=== PATIENT | male | born 1955 | race Caucasian/White ===

== ENCOUNTER 2017-09-28 10:02 | Day surgery (SDC) | payer OTHER ==
[2017-09-27 11:43] VITALS: BMI 30.4
[2017-09-28] MEDS ORDERED: Fentanyl 100 MCG/2 ML VIAL ONE ×2 (10:58→11:28)
[2017-09-28] MEDS ORDERED: Midazolam HCl 2 mg/2 ml Vial ONE ×2 (10:58→11:28)
--- NOTE | 2017-09-28 11:38 | RAD ---
LUMBAR SPINE RADIOGRAPH SERIES 5 VIEWS: COMPARISON: 05/27/13. CLINICAL HISTORY: Low back pain. FINDINGS: Frontal and lateral views including extension and flexion positioning performed. There is a mild ant erior wedge compression fracture of L1, stable. No interval, significant malalignment. No discernib le translational motion of significance identified with flexion and extension positioning. Multileve l degenerative change is grossly stable. IMPRESSION: 1. Stable chronic anterior L1 wedge compression fracture. 2. No significant malalignment or obvious translational motion of lumbar spine. POS: OLEG
--- NOTE | 2017-09-28 12:51 | MRI ---
MRI LUMBAR SPINE: History: Bilateral leg and back pain. Technique: Multiplanar, multisequence noncontrast enhanced MRI images were obtained of the lumbar spi ne. FINDINGS: T12-L1: Unremarkable. L1: There is old, approximately 25% superior endplate L1 compression fracture with no evidence of a e tigist. This appears to have healed. L1-2: Unremarkable. No significant degree of central or neural foraminal narrowing is seen. L2-3: There is mild facet hypertrophy. No significant degree of central or neural foraminal narrowing is seen. L3-4: There is bilateral facet and ligamentum flavum hypertrophy with fluid seen in the L3-4 facet merle ints. The central canal and neural foramen are patent. L4-5: Disc desiccation is seen. There is disc space height loss seen. There is a broad based disc bul ge. Mild to moderate central and lateral recess stenosis is seen. There is mild left sided neural for aminal narrowing seen. The right neural foramen is patent. L5-S1: Unremarkable. The sacrum contains some areas of fatty marrow changes seen in the S2 and S3 vertebral levels. IMPRESSION: L4-5 disc desiccation and disc space height loss and broad based disc bulge. POS: NARINDER
== END 2017-09-28 12:50 | disposition home or self-care (01) ==
LOC: SDC/OP 10:02
PROVIDERS: ATTEND Nurse Practitioner Family
DX: M54.16 Radiculopathy, lumbar region (principal); M48.56XA Collapsed vertebra, not elsewhere classified, lumbar region, initial encounter for fracture; I10 Essential (primary) hypertension; E78.5 Hyperlipidemia, unspecified; E80.4 Gilbert syndrome; E03.9 Hypothyroidism, unspecified; F32.9 Major depressive disorder, single episode, unspecified; F41.9 Anxiety disorder, unspecified; F40.240 Claustrophobia; E66.9 Obesity, unspecified; Z68.30 Body mass index [BMI] 30.0-30.9, adult; Z79.899 Other long term (current) drug therapy; Z88.5 Allergy status to narcotic agent; Z91.041 Radiographic dye allergy status
CPT/HCPCS: 72100; 72148; J2250; J3010

== ENCOUNTER 2018-11-26 12:09 | Outpatient (CLI) | payer OTHER ==
--- NOTE | 2018-11-26 12:40 | RAD ---
TWO VIEWS LEFT FEMUR: DATE: 11/26/2018. PROVIDED CLINICAL HISTORY: Bilateral leg pain without known injury. FINDINGS: There is no evidence for a fracture. No lytic or blastic lesions are seen. Joint spaces appear pres erved. The soft tissues appear radiographically unremarkable. IMPRESSION: Unremarkable left femoral radiographs. POS: OFF
--- NOTE | 2018-11-26 12:43 | RAD ---
TWO VIEWS LEFT FORELEG: DATE: 11/26/2018. PROVIDED CLINICAL HISTORY: Bilateral leg pain. FINDINGS: No evidence for fracture or other acute osseous abnormality. Alignment appears anatomic. Joint spac es appear grossly preserved. The proximal aspects of the tibia and fibula are not visualized on the lateral view, limiting evaluation. IMPRESSION: Unremarkable left foreleg radiographs with limitations as above. POS: OFF
--- NOTE | 2018-11-26 12:44 | RAD ---
RIGHT FORELEG RADIOGRAPHS 2 VIEWS: DATE: 11/26/2018. PROVIDED CLINICAL HISTORY: Leg pain. FINDINGS: No evidence for fracture or other acute osseous abnormality. Alignment appears anatomic. Joint spac es appear preserved. IMPRESSION: Unremarkable right foreleg radiographs. POS: OFF
== END 2018-11-26 12:10 | disposition home or self-care (01) ==
LOC: BICRAD 12:09
PROVIDERS: ATTEND Family Medicine
DX: M79.604 Pain in right leg (principal); M79.605 Pain in left leg

== ENCOUNTER 2019-02-05 07:44 | Outpatient (CLI) | payer OTHER ==
--- NOTE | 2019-02-05 08:46 | BD ---
DEXA BONE DENSITOMETRY: (Dual energy x-ray absorptiometry) DATE: 02/05/2019 HISTORY: 63-year old white male with rheumatoid arthritis and hyperparathyroidism and history of prior nontrau matic fracture weight: 190 lbs height: 67 in. COMPARISON: None available. FINDINGS: The bone mineral density (BMD) is given in grams per square centimeter (g/cm2): LUMBAR SPINE: BMD (g/cm^2) T score Z score L1: 0.556 -4.7 -4.1 L2: 0.714 -3.5 -2.7 L3: 0.801 -2.7 -2.0 L4: 0.799 -2.6 -1.9 Total: 0.722 -3.4 -2.6 HIP: BMD (g/cm^2) T score Z score Femoral neck: 0.644 -2.4 -1.1 Total: 0.926 -0.7 -0.2 IMPRESSION: 1.) The mean bone mineral density of the lumbar spine is osteoporotic. Fracture risk is high. 2) The bone mineral density of the femoral neck is osteopenic. Fracture risk is increased.
== END 2019-02-05 07:45 | disposition home or self-care (01) ==
LOC: BICMAMMO 07:44
DX: Z13.820 Encounter for screening for osteoporosis (principal); M81.0 Age-related osteoporosis without current pathological fracture; M85.859 Other specified disorders of bone density and structure, unspecified thigh
CPT/HCPCS: 77080

== ENCOUNTER 2019-03-15 13:29 | Emergency (ER) | payer OTHER ==
[2019-03-15] MEDS ORDERED: Proparacaine 0.5% Opth 15 ML BOT ONE (13:55)
[2019-03-15] MEDS ORDERED: Fluorescein Opthalmic Strip ONE ×2 (13:55→14:02)
== END 2019-03-15 14:36 | disposition home or self-care (01) ==
LOC: ERS 13:29
DX: S05.02XA Injury of conjunctiva and corneal abrasion without foreign body, left eye, initial encounter (principal); E03.9 Hypothyroidism, unspecified; I10 Essential (primary) hypertension; Z79.891 Long term (current) use of opiate analgesic; Z79.899 Other long term (current) drug therapy; X58.XXXA Exposure to other specified factors, initial encounter
CPT/HCPCS: 99282

== ENCOUNTER 2020-10-20 09:00 | Outpatient (CLI) | payer MEDICARE | END 2020-10-20 09:01 | disposition home or self-care (01) | LOC: BICMAMMO 09:00 | PROVIDERS: ATTEND Internal Medicine | DX: M81.0 Age-related osteoporosis without current pathological fracture (principal) | CPT/HCPCS: 77080 ==

== ENCOUNTER 2022-03-21 12:02 | Outpatient (CLI) | payer MEDICARE, OTHER | END 2022-03-21 12:03 | disposition home or self-care (01) | LOC: BICRAD 12:02 | PROVIDERS: ATTEND Family Medicine | DX: R05.2 Subacute cough (principal) | CPT/HCPCS: 71045 ==

== ENCOUNTER 2023-02-18 10:41 | Inpatient (IN) | payer MEDICARE, OTHER ==
[2023-02-18 11:17] LABS: #Eosinphils 0.1 thou/uL (0.0-0.7); #Monocytes 0.4 thou/uL (0.11-0.59); #Neutrophils 2.6 thou/uL (1.40-6.50); %Basophils 0.6 % (0.0-1.0); %Eosinophils 2.8 % (0.0-10.0); %Lymphocytes 31.3 % (21.0-51.0); %Monocytes 8.4 % (0.0-10.0); %Neutrophils 55.6 % (42.0-75.0); Hematocrit 40.2 % (42.0-52.0); Hemoglobin 14.2 g/dL (14.0-18.0); Mean Corpuscular HGB CONC 35.3 g/dL (32.0-36.0); Mean Corpuscular Hemoglobin 32.5 pg (27.0-31.0); Mean Platelet Volume 9.1 fL (7.4-10.4); Platelet Count 170 10x3/uL (130-400); RBC Distribution Width 11.9 % (11.5-14.5); Red Blood Cell (RBC) Count 4.37 mill/uL (4.70-6.10); White Blood Cell (WBC) Count 4.7 10x3/uL (4.8-10.8)
[2023-02-18 11:38] LABS: ALT (SGPT) 69 U/L (8-55); AST (SGOT) 22 U/L (5-34); Albumin 4.4 g/dL (3.4-4.8); Alkaline Phosphatase 34 U/L (40-110); Anion Gap 13 mmol/L (10-20); BUN (Urea Nitrogen) 17 mg/dL (8.4-25.7); Calc. Creatinine Clearance 0 mL/min (70-130); Calcium 9.3 mg/dL (7.8-10.44); Carbon Dioxide 23 mmol/L (23-31); Chloride 105 mmol/L (98-107); Estimated GFR 75; Globulin 2.1 g/dL (2.4-3.5); Glucose 117 mg/dL (80-115); Potassium 4.3 mmol/L (3.5-5.1); Protein, Total 6.5 g/dL (5.8-8.1); Sodium 137 mmol/L (136-145)
[2023-02-18 11:43] LABS: Troponin I Less than 0.010 ng/mL (< 0.028)
[2023-02-18 14:13] LABS: INR-International Normal Ratio 1.1; PTT 26.7 sec (22.9-36.1); Prothrombin Time 14.4 sec (12.0-14.7)
[2023-02-18] MEDS ORDERED: Ondansetron PF 4 MG/2 ML Vial IVP PRN (15:09)
[2023-02-18] MEDS ORDERED: Acetaminophen/Codeine 30-300mg Tablet PO PRN (15:09)
[2023-02-18] MEDS ORDERED: Acetaminophen 325 MG TAB PO PRN (15:09)
[2023-02-18] MEDS ORDERED: dilTIAZem 125 MG in Sodium Chloride 0.9% 100 ML IVPB SCH ×2 (15:15→17:30)
[2023-02-18 15:29] VITALS: BMI 29.9
[2023-02-18 15:31] LABS: Troponin I Less than 0.010 ng/mL (< 0.028)
[2023-02-18] MEDS: Acetaminophen/Codeine 30-300mg Tablet PO PRN (18:30)
[2023-02-18 18:54] LABS: Troponin I Less than 0.010 ng/mL (< 0.028)
[2023-02-18] MEDS ORDERED: Loperamide HCl 2 MG CAP PO PRN (19:44)
[2023-02-18] MEDS: Flecainide 50 MG TAB PO SCH (21:30)
[2023-02-18] MEDS: Atorvastatin Calcium 40 MG TAB PO SCH (21:30)
[2023-02-18] MEDS ORDERED: Doxylamine 25 MG TAB PO SCH (23:58)
[2023-02-19] MEDS: diphenhydrAMINE 50 MG CAP PO PRN ×2 (00:50→21:06)
[2023-02-19] MEDS ORDERED: dilTIAZem 125 MG in Sodium Chloride 0.9% 100 ML IVPB SCH (01:00)
[2023-02-19 05:38] LABS: #Basophils 0.1 thou/uL (0.0-0.2); #Eosinphils 0.2 thou/uL (0.0-0.7); #Monocytes 0.4 thou/uL (0.11-0.59); #Neutrophils 2.1 thou/uL (1.40-6.50); %Basophils 1.1 % (0.0-1.0); %Eosinophils 3.5 % (0.0-10.0); %Lymphocytes 39.9 % (21.0-51.0); %Monocytes 8.6 % (0.0-10.0); %Neutrophils 45.6 % (42.0-75.0); Hematocrit 40.1 % (42.0-52.0); Hemoglobin 14.3 g/dL (14.0-18.0); Mean Corpuscular HGB CONC 35.7 g/dL (32.0-36.0); Mean Corpuscular Hemoglobin 32.9 pg (27.0-31.0); Mean Corpuscular Volume 92.2 fl (78.0-98.0); Mean Platelet Volume 9.2 fL (7.4-10.4); Platelet Count 188 10x3/uL (130-400); Red Blood Cell (RBC) Count 4.35 mill/uL (4.70-6.10); White Blood Cell (WBC) Count 4.6 10x3/uL (4.8-10.8)
[2023-02-19] MEDS: Levothyroxine Sodium 125 MCG TAB PO SCH (05:47)
[2023-02-19 06:11] LABS: Anion Gap 14 mmol/L (10-20); BUN (Urea Nitrogen) 13 mg/dL (8.4-25.7); Calc. Creatinine Clearance 90 mL/min (70-130); Calcium 9.2 mg/dL (7.8-10.44); Carbon Dioxide 23 mmol/L (23-31); Chloride 106 mmol/L (98-107); Estimated GFR 85; Glucose 103 mg/dL (80-115); Potassium 3.9 mmol/L (3.5-5.1); Sodium 139 mmol/L (136-145)
[2023-02-19 06:34] LABS: Magnesium 2.1 mg/dL (1.6-2.6)
[2023-02-19] MEDS: Flecainide 50 MG TAB PO SCH ×2 (09:31→21:05)
[2023-02-19] MEDS: Sertraline 100 MG TAB PO SCH (09:31)
[2023-02-19] MEDS: Acetaminophen/Codeine 30-300mg Tablet PO PRN ×2 (12:43→21:06)
[2023-02-19 20:03] LABS: Amphetamine Not Detected (NotDetected); Barbiturates Screen Not Detected (NotDetected); Benzodiazepine Screen Not Detected (NotDetected); Cocaine Metabolite Screen Not Detected (NotDetected); Methadone Not Detected (NotDetected); Methamphetamine Not Detected (NotDetected); Opiate Screen Detected (NotDetected); Oxycodone Screen Not Detected (NotDetected); Phencyclidine (PCP) Not Detected (NotDetected); THC/Cannabinoid Screen Detected (NotDetected); Tricyclic Screen Not Detected (NotDetected)
[2023-02-19] MEDS: Atorvastatin Calcium 40 MG TAB PO SCH (21:05)
[2023-02-19 22:38] LABS: Campy jejuni + coli by PCR Negative (Negative); STEC Shiga Toxin 1+2 Negative (Negative); Salmonella spp. by PCR Negative (Negative); Shigella spp + EIEC by PCR Negative (Negative)
[2023-02-20] MEDS: Levothyroxine Sodium 125 MCG TAB PO SCH (05:29)
[2023-02-20 05:48] LABS: #Eosinphils 0.1 thou/uL (0.0-0.7); #Monocytes 0.4 thou/uL (0.11-0.59); #Neutrophils 2.2 thou/uL (1.40-6.50); %Basophils 0.8 % (0.0-1.0); %Eosinophils 2.7 % (0.0-10.0); %Lymphocytes 41.9 % (21.0-51.0); %Monocytes 9.1 % (0.0-10.0); %Neutrophils 44.7 % (42.0-75.0); Hematocrit 42.7 % (42.0-52.0); Mean Corpuscular HGB CONC 35.1 g/dL (32.0-36.0); Mean Corpuscular Hemoglobin 32.2 pg (27.0-31.0); Mean Corpuscular Volume 91.6 fl (78.0-98.0); Mean Platelet Volume 9.4 fL (7.4-10.4); Platelet Count 186 10x3/uL (130-400); RBC Distribution Width 12.1 % (11.5-14.5); Red Blood Cell (RBC) Count 4.66 mill/uL (4.70-6.10); White Blood Cell (WBC) Count 4.9 10x3/uL (4.8-10.8)
[2023-02-20 06:14] LABS: Anion Gap 11 mmol/L (10-20); BUN (Urea Nitrogen) 16 mg/dL (8.4-25.7); Calc. Creatinine Clearance 77 mL/min (70-130); Calcium 9.2 mg/dL (7.8-10.44); Carbon Dioxide 28 mmol/L (23-31); Chloride 106 mmol/L (98-107); Estimated GFR 70; Glucose 96 mg/dL (80-115); Magnesium 2.2 mg/dL (1.6-2.6); Potassium 4.3 mmol/L (3.5-5.1); Sodium 141 mmol/L (136-145)
[2023-02-20] MEDS: Sertraline 100 MG TAB PO SCH (09:30)
[2023-02-20] MEDS: Flecainide 50 MG TAB PO SCH (09:30)
[2023-02-20] MEDS ORDERED: Ketamine 50 MG/ML (10ML VIAL) ONE (12:13)
[2023-02-20] MEDS ORDERED: Lidocaine 1% PF 5 ML VIAL ONE (12:17)
[2023-02-20] MEDS ORDERED: Metoprolol Tartrate 25 MG TAB PO SCH (12:45)
[2023-02-20 16:07] VITALS: BP 140/92
[2023-02-20 16:15] VITALS: TEMP 97.9
[2023-02-20] MEDS ORDERED: Apixaban 5 MG TAB PO SCH (21:00)
== END 2023-02-20 18:43 | disposition home or self-care (01) | DRG 310 ==
LOC: ERS 10:41 → 2SW 14:01 → OBSVTOIN 02-19 10:08
PROVIDERS: ADMIT Family Medicine; ATTEND Internal Medicine
DX: I48.0 Paroxysmal atrial fibrillation (principal); G89.29 Other chronic pain; E03.9 Hypothyroidism, unspecified; I10 Essential (primary) hypertension; E78.5 Hyperlipidemia, unspecified; E83.39 Other disorders of phosphorus metabolism; I48.92 Unspecified atrial flutter; R79.89 Other specified abnormal findings of blood chemistry; F39 Unspecified mood [affective] disorder; R19.7 Diarrhea, unspecified; N40.0 Benign prostatic hyperplasia without lower urinary tract symptoms; I08.1 Rheumatic disorders of both mitral and tricuspid valves; Z88.8 Allergy status to other drugs, medicaments and biological substances; Z90.49 Acquired absence of other specified parts of digestive tract; Z98.890 Other specified postprocedural states
CPT/HCPCS: 36415; 71045; 80048; 80053; 80306; 83735; 83880; 84443; 84484; 85025; 85610; 85730; 87493; 87505; 92960; 93005; 93306; 93312; 96365; 96366; 96372; G0378; J1650

== ENCOUNTER 2023-05-30 09:00 | Outpatient (CLI) | payer MEDICARE, OTHER | END 2023-05-30 15:00 | disposition home or self-care (01) | LOC: MRI 09:00 | PROVIDERS: ATTEND Nurse Practitioner Family | DX: M47.26 Other spondylosis with radiculopathy, lumbar region (principal); M51.16 Intervertebral disc disorders with radiculopathy, lumbar region; M89.38 Hypertrophy of bone, other site; M51.37 Other intervertebral disc degeneration, lumbosacral region; M25.78 Osteophyte, vertebrae; M51.35 Other intervertebral disc degeneration, thoracolumbar region; M48.061 Spinal stenosis, lumbar region without neurogenic claudication | CPT/HCPCS: 72148 ==

== ENCOUNTER 2023-08-23 08:46 | Outpatient (CLI) | payer MEDICARE, OTHER | END 2023-08-23 08:47 | disposition home or self-care (01) | LOC: CT 08:46 | PROVIDERS: ATTEND Family Medicine | DX: R10.9 Unspecified abdominal pain (principal); K76.89 Other specified diseases of liver; M48.56XD Collapsed vertebra, not elsewhere classified, lumbar region, subsequent encounter for fracture with routine healing; Z85.528 Personal history of other malignant neoplasm of kidney; Z98.890 Other specified postprocedural states | CPT/HCPCS: 74178; 82565 ==

== ENCOUNTER 2024-04-14 13:08 | Outpatient (CLI) | payer MEDICARE, OTHER | END 2024-04-14 13:09 | disposition home or self-care (01) | LOC: BICMAMMO 13:08 | PROVIDERS: ATTEND Internal Medicine | DX: M81.0 Age-related osteoporosis without current pathological fracture (principal); M85.851 Other specified disorders of bone density and structure, right thigh; M85.852 Other specified disorders of bone density and structure, left thigh | CPT/HCPCS: 77080 ==